=== PATIENT | female | born 1980 | race Two or more races ===

== ENCOUNTER 2024-05-20 23:25 | Emergency (ER) | payer OTHER ==
[~2024-05-20] VITALS: Ht 162.6 cm; Wt 106.6 kg
[2024-05-20] MEDS ORDERED: SYNTHROID175 MCG PO (23:48)
[2024-05-20 23:49] VITALS: BP 113/73; O2SAT 97
[2024-05-20] MEDS ORDERED: MOUNJARO2.5 MG/0.5 SQ (23:49)
[2024-05-21] MEDS ORDERED: DIPHENHYDRAMINE HCL 50 MG/ML VIAL 1ML IV STA (03:25)
[2024-05-21] MEDS ORDERED: ACETAMINOPHEN 500 MG GEL..CAP PO STA (03:26)
[2024-05-21] MEDS ORDERED: ACETAMINOPHEN 500 MG GEL..CAP PO ONE (03:30)
[2024-05-21] MEDS ORDERED: DIPHENHYDRAMINE HCL 50 MG/ML VIAL 1ML ONE (03:30)
[2024-05-21 04:00] LABS: HEMATOCRIT 35.9 % (36.0-45.00); HEMOGLOBIN 12.4 g/dL (12.0-15.00); MEAN CELL VOLUME 81.9 fL (80.00-100.00); MEAN CORPUSCULAR HEMOGLOBIN 28.3 pg (27.00-32.0); MEAN CORPUSCULAR HGB CONC 34.5 g/dl (32.0-36.0); PLATELET COUNT 168 K/uL (150-450); RED BLOOD COUNT 4.39 M/uL (4.00-6.00); RED CELL DISTRIBUTION WIDTH 14.4 % (11.5-14.5)
[2024-05-21] MEDS ORDERED: DOLOGESIC-DF 51 EACH PO (04:36)
[2024-05-21] MEDS ORDERED: ZYRTEC10 M3 PO (04:36)
== END 2024-05-21 04:41 ==
LOC: ER 23:27
PROVIDERS: General Practice
DX: A90 Dengue fever [classical dengue] (principal); R50.9 Fever, unspecified